=== PATIENT | female | born 1975 | race Caucasian/White ===

== ENCOUNTER 2020-05-13 11:10 | Outpatient (CLI) | payer BC, SELFPAY ==
--- NOTE | ~2020-05-13 | XR_ITS ---
XR chest 2V DATE: 05/13/2020 11:34 INDICATION: Cough. Back pain. TECHNIQUE: PA and lateral views COMPARISON: None FINDINGS: Normal heart size. No hilar or mediastinal enlargement. No pulmonary infiltrate or consolid ation, pleural effusion or pulmonary vascular congestion or pneumothorax. IMPRESSION: No active cardiopulmonary disease Reviewed, dictated and finalized at location B.
== END 2020-05-13 11:11 | disposition home or self-care (01) ==
PROVIDERS: PCP Internal Medicine; Visit Provider Clinical Nurse Specialist
DX: M54.9 Dorsalgia, unspecified (principal); R05 Cough
CPT/HCPCS: 71046

== ENCOUNTER → 2020-12-25 08:00 | Outpatient (CLI) | payer BC, SELFPAY ==
[2020-12-25 19:41] LABS: SARS-CoV-2 RNA PCR Negative
== END ==
PROVIDERS: PCP Internal Medicine; Visit Provider Nurse Practitioner
DX: R68.89 Other general symptoms and signs (principal); Z20.822 Contact with and (suspected) exposure to COVID-19
CPT/HCPCS: C9803; U0003; U0005

== ENCOUNTER → 2021-02-10 00:21 | Outpatient (CLI) | payer BC, SELFPAY ==
[2021-02-11 00:42] LABS: SARS-CoV-2 RNA PCR Negative
== END ==
PROVIDERS: PCP Internal Medicine; Visit Provider Clinical Nurse Specialist
DX: R68.89 Other general symptoms and signs (principal); Z20.822 Contact with and (suspected) exposure to COVID-19
CPT/HCPCS: C9803; U0003; U0005

== ENCOUNTER 2021-02-18 08:44 | Outpatient (CLI) | payer BC, SELFPAY | END 2021-02-18 08:45 | disposition home or self-care (01) | LOC: ANHCOVIDVC 08:44 | PROVIDERS: PCP Internal Medicine | DX: Z23 Encounter for immunization (principal) | CPT/HCPCS: 0001A; 91300 ==

== ENCOUNTER 2021-03-11 08:42 | Outpatient (CLI) | payer BC, SELFPAY | END 2021-03-11 08:43 | PROVIDERS: PCP Internal Medicine | DX: Z23 Encounter for immunization (principal) | CPT/HCPCS: 0002A; 91300 ==

== ENCOUNTER 2023-12-08 08:02 | Outpatient (CLI) | payer BC, SELFPAY ==
[2023-12-08 13:45] LABS: Basophils Percent Auto 0.7 % (0.2-1.2); Eosinophils Percent Auto 0.2 % (0-4.4); Hematocrit 38.7 % (37.0-47.0); Hemoglobin 12.9 g/dL (12.0-15.0); Immature Granulocyte Absolute 0.01 K/mm3 (0.00-0.031); Immature Granulocyte Percent A 0.2 % (0-0.5); Lymphocytes Absolute Auto 2.07 K/mm3 (0.9-3.2); Lymphocytes Percent Auto 34.1 % (18.3-44.2); Mean Corpuscular HGB Conc 33.3 g/dl (32-36); Mean Corpuscular Hemoglobin 30.1 pg (26-34); Mean Corpuscular Volume 90.2 fl (80-100); Mean Platelet Volume 8.9 fl (7.4-10.4); Monocytes Absolute Auto 0.5 K/mm3 (0.1-0.6); Monocytes Percent Auto 8.6 % (2.6-8.5); Neutrophils Absolute Auto 3.4 K/mm3 (1.3-6.7); Neutrophils Percent Auto 56.2 % (45.5-73.1); Platelet Count Result 378 k/mm3 (150-375); Red Blood Count 4.29 M/mm3 (4.2-5.4); Red Cell Distribution Width 12.1 % (11.5-14.5); White Blood Count 6.1 K/mm3 (4.5-10.0)
[2023-12-08 13:56] LABS: Alanine Aminotransferase 15 U/L (6-35); Albumin Level 4.3 g/dL (3.5-5.1); Alkaline Phosphatase 83 U/L (38-126); Anion Gap 10 mmol/L (8-16); Aspartate Amino Transferase 38 U/L (14-36); Bilirubin,Total 0.5 mg/dL (0.2-1.3); Blood Urea Nitrogen 12 mg/dL (7-17); Calcium 9.2 mg/dL (8.4-10.2); Carbon Dioxide 25 mmol/L (22-30); Chloride 103 mmol/L (98-107); Cholesterol 223 mg/dL (0-200); Estimated Glomerular Filt Rate > 60; Glucose 80 mg/dL (65-110); HDL Direct 53 mg/dL; Potassium 4.2 mmol/L (3.4-5.0); Sodium 138 mmol/L (137-145); Triglycerides 160 mg/dL (<150)
[2023-12-08 14:07] LABS: LDL Cholesterol Direct 134 mg/dL
[2023-12-08 14:10] LABS: Vitamin D 25 Hydroxy 42.9 ng/mL
== END 2023-12-08 08:03 | disposition home or self-care (01) ==
LOC: ANHGOSHLAB 08:04
PROVIDERS: PCP Internal Medicine; Visit Provider Nurse Practitioner
DX: E55.9 Vitamin D deficiency, unspecified (principal); Z13.220 Encounter for screening for lipoid disorders; Z13.29 Encounter for screening for other suspected endocrine disorder; Z00.00 Encounter for general adult medical examination without abnormal findings
CPT/HCPCS: 36415; 80053; 80061; 82306; 85025

== ENCOUNTER 2024-11-02 11:34 | Emergency (ER) | payer BC, SELFPAY ==
[2024-11-02 12:12] VITALS: BP 117/75; PULSE 71; RESP 18; TEMP 36.8; O2SAT 100
--- NOTE | 2024-11-02 12:20 | ED.SKABFB ---
HPI - Skin/Abscess/Foreign Bdy General Chief complaint: Skin/Abscess/Foreign Body Stated complaint: hives Time Seen by Provider: 11/02/24 12:20 Source: patient, RN notes reviewed and old records reviewed Mode of arrival: ambulatory Limitations: no limitations History of Present Illness HPI narrative: patient presents with several week history of rash to trunk, arms, buttocks, thighs. She reports that rash is itchy. Denies any change in lotions, soaps, detergents. Denies any recent travel. She has been using topical medications for her symptoms with minimal relief. Over the past week she has been using Zyrtec with minimal relief. No other concerns or complaints today. Related Data Allergies Allergy/AdvReac Type Severity Reaction Status Date / Time No Known Allergies Allergy Mild Verified 11/02/24 12:36 Review of Systems Review of Systems: All systems reviewed & are unremarkable except as noted in HPI and below Constitutional: Constitutional: Reports no additional constitutional complaints ENT: Reports system reviewed and no additional complaints, except as documented Cardiovascular: Cardiovascular: Reports no additional cardiovascular complaints Respiratory: Respiratory: Reports no additional respiratory complaints Gastrointestinal: Gastrointestinal: Reports no additional gastrointestinal complaints Integumentary/Breasts: Skin/Breast: Reports system reviewed and no additional complaints, except as docu, Reports as per HPI, Reports pruritus and Reports rash PMFSH Past Medical History Medical History Iron deficiency anemia Sexually transmissible disease Surgical History Surgical History Hx of abdominoplasty History of tonsillectomy and adenoidectomy H/O: hysterectomy 2014 Laparoscopic supra cx hysterectomy , cystoscopy- uterine leiomyomata Family History Family History Grandparent Hypertension Family history of elevated blood lipids Cerebrovascular accident Family history of malignant neoplasm of cervix Mother Patient's mother is in good health Father Patient's father is in good health Social History Social History Smoking status: Never smoker Alcohol intake: current Alcohol use details: occasional Substance use: never Lack of Transportation: No Lack of Food: Never True Concerned About Future Housing: No Difficulty Paying Gas/Electric Bills: No Difficulty Paying for Meds: No Currently Unemployed: No Education: Bachelor's Degree Difficulty w/ Childcare or Family Care: No Living arrangements: with family Occupation/Education: occupation Gender identity (if verbalized by the patient): Female Sexual Orientation (if Verbalized by the Patient): Straight or Heterosexual Comments At the time of my signature, I reviewed and agree with the nursing past medical, surgical, social, and family history. There is no relevant family history pertinent to the patient complaint. Exam Const: General: cooperative, no acute distress, alert and awake Orientation/consciousness: oriented to person, oriented to place and oriented to time HENMT: Head: normal to inspection Mouth: Yes moist mucous membranes Resp: Effort & Inspection: normal respiratory effort and able to speak in complete sentences Auscultation: clear to auscultation bilaterally, no crackles, no rales, no rhonchi and no wheezes Cardio: Palpation: normal PMI Rate: regular rate Rhythm: regular rhythm Heart sounds: S1 normal heart sound present and S2 normal heart sound present Skin: Rashes: rashes noted maculopapular rash multiple locations Neuro: General: oriented to person, oriented to place and oriented to time Cranial nerves: Yes CN's II-XII intact bilaterally Psych: Appearance: grossly normal Thought process: Normal thought process present Insight: Good insight present (Psych) Judgement: Good judgement present (Psych) Course Course Level of Care: Express Care Visit Vital Signs Vital signs: Vital Signs Temperature 98.2 F 11/02/24 12:12 Pulse Rate 71 11/02/24 12:12 Respiratory Rate 18 11/02/24 12:12 Blood Pressure 117/75 11/02/24 12:12 Pulse Oximetry 100 11/02/24 12:12 Oxygen Delivery Room Air 11/02/24 12:12 Temperature 98.2 F 11/02/24 12:12 Pulse Rate 71 11/02/24 12:12 Respiratory Rate 18 11/02/24 12:12 Blood Pressure 117/75 11/02/24 12:12 Pulse Oximetry 100 11/02/24 12:12 Oxygen Delivery Room Air 11/02/24 12:12 Reviewed MDM - Skin/Abscess/Foreign Bdy MDM Narrative Medical decision making narrative: Maculopapular rash consistent with contact dermatitis noted 2 large areas of the body. Start prednisone taper. Patient encouraged to follow with primary care provider. Discharge instructions reviewed with patient, as well as provided in writing per nursing staff. The instructions also include specific and strict return/GO TO THE ER as well as f/u information. All questions have been answered, and the patient deny any further questions with discharge and discharge plan. Some parts of this dictation were generated by voice recognition software and may contain typographical and/or grammatical inaccuracies. Differential Diagnosis Differential diagnosis: Likely viral exanthem, dermatophytosis, allergic reaction to drug and contact dermatitis Medical Records Attestation: I reviewed the patient's medical records. Discharge Plan Discharge Clinical Impression: Dermatitis Patient Disposition: Home, Self-Care Condition: Stable Instructions: Antibiotic Form, Dermatitis (ED) Additional Instructions: take medications as prescribed. Follow with primary care provider. Emergency department for new or worse symptoms Patient Language: Bulgarian Prescriptions: New prednisone 10 mg tablet 10 mg PO DIRECTED Qty: 45 0RF Rx Instructions: 50 mg by mouth daily for 3 days, 40 mg by mouth daily for 3 days , 30 mg by mouth daily for 3 days, 20 mg by mouth daily for 3 days, 10 mg by mouth daily for 3 days, then stop. No Action estradiol 1 mg tablet 1.5 mg PO DAILY 90 Days Qty: 135 2RF Follow-up/Referrals: Evaristo Gutiérrez DO [Primary Care Provider] - Time of Disposition: 12:43
== END 2024-11-02 12:46 | disposition home or self-care (01) ==
PROVIDERS: Emergency Provider Nurse Practitioner Family; PCP Internal Medicine
DX: L30.9 Dermatitis, unspecified (principal)
CPT/HCPCS: 99213; G0463

== ENCOUNTER 2025-02-15 08:30 | Outpatient (CLI) | payer BC, SELFPAY ==
--- NOTE | ~2025-02-15 | MM_ITS ---
EXAMINATION: MM screening [facility] BI w [place] HISTORY: Screening TECHNIQUE: Craniocaudal and mediolateral oblique 3-D tomosynthesis images were obtained and synthetic 2-D images were generated. CAD analysis was submitted and interpreted. COMPARISON: 02/09/2017 BREAST PARENCHYMAL COMPOSITION: Dense: The breasts are extremely dense, which lowers the sensitivity of mammography. FINDINGS: There are benign-appearing bilateral breast calcifications. There is no evidence of suspici ous mass, calcification, or architectural distortion to suggest malignancy in either breast. There no s been no suspicious interval change. IMPRESSION: 1. No mammographic evidence of malignancy. 2. Recommend routine screening mammography in one year. BI-RADS Category 1: Negative Reviewed, dictated and finalized at location A.
--- OUTSIDE RECORDS SUMMARY | 2025-02-15 08:36 | XMS_ITS ---
Author Organization [facility] Address [address] [place] [address] Care Team Providers Care Obstetrician Gynecologist Name Role Phone Evaristo Gutiérrez Primary Care Provider Omaira Mane Unavailable [phone] Allergies No Known Allergies Results Component Value Reference Range Notes -Tryptase ([id number]) Reviewed date:12/11/2024 08:40:30 AM Interpretation:Normal Performing Lab:[facility] [id number], Phone - [phone], Director - Nicola Notes/Report: Tryptase 12.0 2.2-13.2 ug/L -TSH Rfx on Abnormal to Free T4 Reviewed date:12/11/2024 08:41:44 AM Interpretation:Normal Performing Lab:[facility] [address] [id number], Phone - [phone], Director - Rose Notes/Report: TSH 1.310 0.450-4.500 uIU/mL -CMP (14) Reviewed date:12/11/2024 08:39:04 AM Interpretation:Normal Performing Lab:[facility] [address] [id number], Phone - [phone], Director - Rose Notes/Report: Glucose 93 70-99 mg/dL BUN 16 6-24 mg/dL Creatinine 0.67 0.57-1.00 mg/dL eGFR 107 >59 mL/min/1.73 BUN/Creatinine Ratio 24 9-23 Sodium 138 134-144 mmol/L Potassium 4.1 3.5-5.2 mmol/L Chloride 101 96-106 mmol/L Carbon Dioxide, Total 23 20-29 mmol/L Calcium 9.4 8.7-10.2 mg/dL Protein, Total 7.3 6.0-8.5 g/dL Albumin 4.7 3.9-4.9 g/dL Globulin, Total 2.6 1.5-4.5 g/dL Bilirubin, Total <0.2 0.0-1.2 mg/dL Alkaline Phosphatase 85 44-121 IU/L AST (SGOT) 16 0-40 IU/L ALT (SGPT) 13 0-32 IU/L -Sedimentation Rate-Westergr en Reviewed date:12/11/2024 08:39:14 AM Interpretation:Normal Performing Lab:[facility] [id number], Phone - [phone], Director - [facility] Notes/Report: Sedimentation Rate-Westergren 4 0-32 mm/hr -CBC With Differential/Plate let Reviewed date:12/11/2024 08:39:29 AM Interpretation:Normal Performing Lab:[facility] [address] [id number], Phone - [phone], Director - [facility] Notes/Report: WBC 6.8 3.4-10.8 x10E3/uL RBC 4.41 3.77-5.28 x10E6/uL Hemoglobin 13.2 11.1-15.9 g/dL Hematocrit 40.9 34.0-46.6 % MCV 93 79-97 fL MCH 29.9 26.6-33.0 pg MCHC 32.3 31.5-35.7 g/dL RDW 12.1 11.7-15.4 % Platelets 433 150-450 x10E3/uL Neutrophils 54 Not Estab. % Lymphs 38 Not Estab. % Monocytes 7 Not Estab. % Eos 0 Not Estab. % Basos 1 Not Estab. % Neutrophils (Absolute) 3.7 1.4-7.0 x10E3/uL Lymphs (Absolute) 2.6 0.7-3.1 x10E3/uL Monocytes(Absolute) 0.5 0.1-0.9 x10E3/uL Eos (Absolute) 0.0 0.0-0.4 x10E3/uL Baso (Absolute) 0.1 0.0-0.2 x10E3/uL Immature Granulocytes 0 Not Estab. % Immature Grans (Abs) 0.0 0.0-0.1 x10E3/uL REASON FOR VISIT Chronic Urticaria Medications Medication SIG (Take, Route, Frequency, Duration) Notes Start Date End Date Status Famotidine 20 MG 1 tablet Orally Twic e a day for 30 days 12/07/2024 Active Montelukast Sodium 10 MG 1 tablet Orally Once a day for 30 days 12/07/2024 Active methylPREDNISolone 4 MG as directed Oral ly daily for 6 days 12/07/2024 Active Cetirizine HCl 10 MG 1 tablet Orally Twi ce a day for 30 days 12/07/2024 Active Estradiol 1 MG TAKE 1.5 TABLETS BY MOUTH EVERY DAY Oral for 90 Days Activ e Social History Tobacco Use: Social History Observation Description Date Details (start date - stop date) Never Smoker NA - NA Tobacco Control (Standard) Question Answer Notes Tobacco use: Nonsmoker Section Notes: dogs and rabbits works in [employer] Problems Problem Type SNOMED Code ICD Code Onset Dates Problem Status W/U Status Risk Notes Problem Chronic rhinitis (01121610) Chronic rhinitis (J31.0) Active confirmed Problem Food allergy (395494078) Allergy to other foods (Z91.018) Active confirmed Vital Signs Blood pressure systolic 125 mm Hg 12/06/19 25 Blood pressure diastolic 79 mm Hg 025 Height 65 in 12/06/2024 Weight 158.0 lbs 12/06/2024 BMI 26.29 kg/m2 12/06/2024 Oximetry 99 % 12/06/2024 Encounters Encounter Location Date Provider Diagnosis [facility] [address] [place] [address] 12/06/2024 Omaira Pool Chronic rhinitis J31.0 ; Idiopathic urticaria L50.1 and Allergy to other foods Z91.018 Assessments Encounter Date Diagnosis (ICD Code) Assessment Notes Treatment Notes Treatment Clinical Notes Section Notes 12/06/2024 Chronic rhinitis (ICD-10 - J31.0) Given the history and symptoms, skin testing was performed to common aeroallergens to determine atopic status. Skin testing today was negative for aeroallergens. Allegens do not appear to be playing a role in hives. 12/06/2024 Idiopathic urticaria (ICD-10 - L50.1) Considerations for hives include autoimmune, viral, stress, or idiopathic. Plan to order labwork for further evaluation. Start treatment with Zyrtec 10 mg BID, Famotidine 40 mg BID, and Singulair. Follow-up in 1 month. Consider Xolair if hives continue to be uncontrolled. 12/06/2024 Allergy to other foods (ICD-10 - Z91.018) Reactions with alcohol appears to be secondary to sulfites. Recommend keeping a food diary. 12/06/2024 Other Plan Of Treatment Medication Medication Name Sig Start Date Stop Date Notes Famotidine 20 MG 1 tablet Orally Twic e a day for 30 days 12/07/2024 Montelukast Sodium 10 MG 1 tablet Orally Once a day for 30 days 12/07/2024 methylPREDNISolone 4 MG as directed Oral ly daily for 6 days 12/07/2024 Cetirizine HCl 10 MG 1 tablet Orally Twi ce a day for 30 days 12/07/2024 Treatment Notes Assessment Notes Chronic rhinitis Given the history an d symptoms, skin testing was performed to common aeroallergens to determine atopic status. Skin testing today was negative for aeroallergens. Allegens do not appear to be playing a role in hives. Idiopathic urticaria Considerations for hives include autoimmune, viral, stress, or idiopathic. Plan to order labwork for further evaluation. Start treatment with Zyrtec 10 mg BID, Famotidine 40 mg BID, and Singulair. Follow-up in 1 month. Consider Xolair if hives continue to be uncontrolled. Allergy to other foods Reactions with al cohol appears to be secondary to sulfites. Recommend keeping a food diary. Next Appt Details Follow Up: 4 Weeks, Reason: Evaluation and Management Procedure Notes * Category Sub-Category Detail Notes Skin Testing Number of Skin Tests Performed (including controls): Aeroallergen: Yes Epicutaneous: 72 Epicutaneous (New) skin testing was per formed to common aeroallergens, revealing positive reactions to only histamine controls, negative to all aeroallergens tested Progress Notes * Mirlande WONGDOB:1975 (49 yo F)Acc No.[id number]:12/06/2024 Progress Notes Patient: Mirlande MCKEON Provider: Joe Pool MD :1975 A ge:49 Y S ex:Female Date:12/06/2024 [id number] Pcp:Evaristo Gutiérrez Subjective: * Chief Complaints: * C hronic Urticaria * HPI: * Introduction: I had the pleasure of seeing Marissa Wong, a 49 year old with recent hives presenting for evaluation of chronic urticaria. She is alone for today's visit. Hives started June 2024 and flared in October. She reports hives on her upper legs, neck, chest and abdomen. She was treated with prednisone by urgent care about 4 weeks ago with improvement. Hives recurred after stopping. She has used topical Benadryl and Zyrtec without significant improvement. Hives are pruritic. No change with exercise or hot showers. No history of angioedema. She does not take NSAIDS. Beer, wine and pradeep caused pruritus. She works in [employer]. No recent illness. She has never undergone allergy skin testing or received allergy immunotherapy. She denies a history of physician-diagnosed allergic rhinitis, recurrent sinusitis or otitis media, recurrent pneumonia, asthma/RAD, eczema, food allergies, m edication allergies, contact dermatitis, latex allergy, eosinophilic esophagitis or stinging insect hypersensitivity. * ROS: A LLERGY: Positive p er the HPI and history, otherwise unremarkable.? S PECIAL SENSES: Positve for n one. C ONSTITUTIONAL: Positive for n one. E NT: Positive p er the HPI and history, otherwise unremarkable.? R ESPIRATORY: Positive p er the HPI and history, otherwise unremakable.? O PHTHALMOLOGY: Positive for p er the HPI and history, otherwise unremarkable. E NDOCRINOLOGY: Positive for n one. C ARDIOLOGY: Positive for n one. G ASTROENTEROLOGY: Positive for n one. U ROLOGY: Positive for n one. D ERMATOLOGY: Positive for p er the HPI and history, otherwise unremakable. N EUROLOGY: Positive for n one. H EMATOLOGY/LYMPH: Positive for n one. M USCULOSKELETAL: Positive for n one. P SYCHOLOGY: Positive for n one. A ll other review of systems per the HPI and history, otherwise unremarkable. * Medical History: * Surgical History: h ysterectomy 2010Tonsillectomy 1999 * Hospitalization/Major Diagno stic Procedure: D enies Past Hospitalization * Family History: F ather: alive, lung cancer, diagnosed with Cancer. M other: alive, lung cancer, diagnosed with Cancer. * Social History: T obacco Control (Standard) Tobacco use: N onsmoker d ogs and rabbits works in [employer]. * Medications: T akingEstradiol 1 MG Tablet TAKE 1.5 TABLETS BY MOUTH EVERY DAY Oral Medication List reviewed and reconciled with the patientTaking Estradiol 1 MG Tablet TAKE 1.5 TABLETS BY MOUTH EVERY DAY Oral Medication List reviewed and reconciled with the patient * Allergies: N .K.D.A.no[Allergies Verified] Objective: * Vitals: B P:125/79mm Hg, HR:95/min, Pulse Oximetry:99%, Ht: 65 in, Wt: 158.0 lbs, BMI:26.29Index. * Examination: G eneral examination: General appearance: p leasant, well-developed, well-nourished. HEENT: c onjunctiva are clear bilaterally, no tenderness to palpation of the sinuses, TM's without evidence of acute infection, turbinates 2+ swollen and pale inferiorly bilaterally, clear rhinorrhea is present, no polyps noted, no septal perforation, posterior oropharynx is clear, no exudates, no tongue swelling, and uvula is midline. Oral cavity: n ormal, no lesions. Neck, thyroid : s upple, non-tender, no anterior cervical lymphadenopathy. Breasts : n ot performed. Heart: R RR, S1-S2, no murmurs, no rubs, no gallops. Lungs: c lear to auscultation and percussion in all lung mabry, no wheezes or crackles. Neurologic exam: u nremarkable. Skin: e rythematous, round areas scattered on chest . ? Peripheral pulses: n ormal (2+) bilaterally. Back: n ormal. Extremities: n ormal ROM, no clubbing, no cyanosis, no edema. Genitalia: n ot performed. Assessment: * Assessment: 1. I diopathic urticaria - L50.1 (Primary) 2 . C hronic rhinitis - J31.0? 3. A llergy to other foods - Z91.018 Plan: * Treatment: 2. C hronic rhinitis Notes: Given the history and symptoms, skin testing was performed to common aeroallergens to determine atopic status. Skin testing today was negative for aeroallergens. Allegens do not appear to be playing a role in hives. 3. A llergy to other foods Notes: Reactions with alcohol appears to be secondary to sulfites. Recommend keeping a food diary. ? * Procedures: S kin Testing: Number of Skin Tests Performed (including controls): A eroallergen Y es E picutaneous 7 2 Epicutaneous (New) s kin testing was performed to common aeroallergens, revealing positive reactions to only histamine controls, negative to all aeroallergens tested. * Procedure Codes: 9 5004 PRICK TESTS, Units: 72.00 25355 PT-FOCUSED HLTH RISK [id number] DOC MEDS VERIFIED W/PT OR RE * Preventive Medicine: Counseling: M edication instruction: W atch for side effects of prescribed medications, Nasal steroid/antihistamine instruction: avoid septum. E ducation: G ENERAL EDUCATION: Our staff spent an additional 30 minutes in direct contact with the patient educating them on their current diagnoses and proper treatment and prevention of symptoms and the proper use of medications. P atient education material sent to portal? Y es * Follow Up: 4 Weeks (Reason: Evaluation and Management) * Billing Information: * Visit Code: 22756 Office Visit, New Pt., Level 3. Modifiers: 25 * Procedure Codes: 15391 PRICK TESTS. Units: 72.00. 09679 PT-FOCUSED HLTH RISK ASSMT. G8427 DOC MEDS VERIFIED W/PT OR RE. Images * 12/06/2024 14:24:32 * KER OPERATOR Sign off status: Completed true * Provider: Joe Pool MD Date: 0 12/06/2024 Generated for Jesus loyola/Kevin/Bhupinderitting on: 0 02/15/2025 08:36 AM CDT History and Physical Notes * HPI (History of Present Illness) Category Sub-Category Detail Notes Category Not es *Introduction I had the pleasure o f seeing Mirlande Wong, a 49 year old with recent hives presenting for evaluation of chronic urticaria. She is alone for today's visit. Hives started June 2024 and flared in October. She reports hives on her upper legs, neck, chest and abdomen. She was treated with prednisone by urgent care about 4 weeks ago with improvement. Hives recurred after stopping. She has used topical Benadryl and Zyrtec without significant improvement. Hives are pruritic. No change with exercise or hot showers. No history of angioedema. She does not take NSAIDS. Beer, wine and pradeep caused pruritus. She works in [employer]. No recent illness. She has never undergone allergy skin testing or received allergy immunotherapy. She denies a history of physician-diagnosed allergic rhinitis, recurrent sinusitis or otitis media, recurrent pneumonia, asthma/RAD, eczema, food allergies, medication allergies, contact dermatitis, latex allergy, eosinophilic esophagitis or stinging insect hypersensitivity Examination Category Sub-Category Detail Notes Category Not es General examination HEENT: conjunctiva are clear bilaterally, no tenderness to palpation of the sinuses, TM's without evidence of acute infection, turbinates 2+ swollen and pale inferiorly bilaterally, clear rhinorrhea is present, no polyps noted, no septal perforation, posterior oropharynx is clear, no exudates, no tongue swelling, and uvula is midline Neck, thyroid : supple, non-tender, no anterior cervical lymphadenopathy Heart: RRR, S1-S2, no murmu rs, no rubs, no gallops Lungs: clear to auscultatio n and percussion in all lung mabry, no wheezes or crackles Abdomen: Extremities: normal ROM, no clubb ing, no cyanosis, no edema General appearance: pleasant, well-devel oped, well-nourished Skin: erythematous, round areas scattered on chest Neurologic exam: unremarkable Oral cavity: normal, no lesions Breasts : not performed Peripheral pulses: normal (2+) bilatera lly Back: normal Genitalia: not performed
--- OUTSIDE RECORDS SUMMARY | 2025-02-15 08:37 | XMS_ITS | Clinical Summary ---
Author Organization [facility] Address [address] [address] Phone Care Team Providers Care Child Adolescent Psychiatrist Name Role Phone KristinagenesisEvaristo aaron Primary Care Provider Allergies No known active allergies Medications docusate sodium (COLACE) 100 mg capsule Take 100 mg by mouth 2 times daily. Active multivitamin (DAILY-OSITO) tablet Take 1 Tab by mouth daily. Active VITAMIN B COMPLEX NO.12-NIACIN ORAL Take by mouth. Active Iron Fum & [id number] [facility] 151-60-10-1 uv-pg-sst-mg Tablet Take by mouth. 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 Not on file Not on file Not on file Last Filed Vital Signs Vital Sign Reading Time Taken Comments Blood Pressure 122/70 06/25/2015 10:03 AM CDT Pulse 80 06/04/2015 7:25 AM CDT Temperature 36.4 C (97.6 F) 06/04/2015 7:25 AM CDT Respiratory Rate 16 06/04/2015 7:25 AM CDT Oxygen Saturation 98% 06/04/2015 7:25 AM CDT Inhaled Oxygen Concentration - - Weight 64 kg (141 lb) 06/25/2015 10:03 AM CDT Height 165.1 cm (5' 5 ) 06/25/2015 10:03 AM CDT Body Mass Index 23.46 06/25/2015 10:03 AM CDT Plan of Treatment Health Maintenance Due Date Last Done Comments DTAP/TDAP/TD VACCINES (1 - Tdap) 1994 HEPATITIS B VACCINES (1 of 3 - 19+ 3-dose series) 1994 HPV/Cotest (21-29) 1996 PAP SMEAR 1996 CERVICAL CANCER SCREENING 2005 HPV/Cotest (30-65) 2005 PAP SMEAR 2005 BREAST CANCER SCREENING 2015 COLORECTAL SCREENING 2020 Colorectal Cancer Screening 2020 FIT-DNA Q 3 years 2020 FIT/FOBT Q 1 year 2020 Flex Sig/CT Colonography Q 5 years 2020 INFLUENZA VACCINE (#1) 2024 PNEUMOCOCCAL VACCINE 0-49 YEARS Aged Out No longer eligible based on patient's age to complete this topic Advance Directives For more information, please contact: [phone] * Full Code (Latest Code Status on File) Date Activated Date Inactivated Comments 06/03/2015 10:57 AM 06/04/2015 1:40 PM * Full Code Date Activated Date Inactivated Comments 06/03/2015 5:41 AM 06/03/2015 10:57 AM Care Teams Child Adolescent Psychiatrist Relationship Specialty Start Date End Date Evaristo Gutiérrez DO PCP - General 10/24/15
--- OUTSIDE RECORDS SUMMARY | 2025-02-15 08:37 | XMS_ITS | Clinical Summary ---
Author Organization [facility] Address [address] [place] [address] Care Team Providers Care Cutting Machine Tender Name Role Phone Evaristo Gutiérrez DO Primary Care Provider Source Comments [facility],non-owned Affiliates and Associated Physician Practices is amultiple site organization consisting of ambulatory clinics and hospital sitesin [place], [place], [place] and [place]. This disclosure is being madepursuant to the Care Everywhere program and may not contain all information available regarding this patient. Last updated 18.[facility] Allergies No known active allergies Medications * Be aware that medications may not be up to date on this document. Alwaysverify current medications with the patient. Medication Sig Dispensed Refills Start Date End Date Status VITAMINS PO Take by mouth. Active Acetaminophen-Pamabrom (WOMENS TYLENOL PO) Take by mouth. A ctive Active Problems Problem Noted Date Diagnosed Date Screening for condition 12/02/2012 Overview (08/08/2015): 1st look done on 11.25.12 Result: 1:880 screening risk for Down Syndrome 1: 10,000 screening risk for Trisomy 18 2nd blood draw ideal dates: 01/09/13- 01/23/13 Letter sent on 12.02.12/ 12.16.12 Final results: for Trisomy 18 and for ONTD Fibroid- Rt lateral 4 x 4 x 4 11/22/2012 AMA (advanced maternal age) multigravida 35+ 09/2013 Social History Tobacco Use Types Packs/Day Years Used Date Smoking Tobacco: Never Smokeless Tobacco: Never Alcohol Use Standard Drinks/Week Comments No 0 (1 standard drink = 0.6 oz pur e alcohol) Sex and Gender Information Value Date Recorded Sex Assigned at Not on file Gender Identity Not on file Sexual Orientation Not on file Last Filed Vital Signs Vital Sign Reading Time Taken Comments Blood Pressure 107/75 02/20/2015 9:20 AM CDT Pulse 98 02/20/2015 9:20 AM CDT Temperature 36.6 C (97.8 F) 01/08/2015 8:40 AM INSULATION INSTALLER Respiratory Rate 16 02/20/2015 9:20 AM CDT Oxygen Saturation 95% 01/08/2015 10:20 AM INSULATION INSTALLER Inhaled Oxygen Concentration - - Weight 65.8 kg (145 lb) 02/20/2015 9:20 AM CDT Height 165.1 cm (5' 5 ) 02/20/2015 9:20 AM CDT Body Mass Index 24.13 02/20/2015 9:20 AM CDT Plan of Treatment Health Maintenance Due Date Last Done Comments COLOGUARD (AGES 45-75) - COL ON CA SCREENING 1975 COLON MONITORING 1975 COLONOSCOPY - COLON CA SCREENING 1975 CT COLONOGRAPHY - COLON CA SCREENING 1975 Colorectal Cancer Screening 1975 FIT - COLON CA SCREENING 1975 FLEX SIG - COLON CA SCREENING 1975 LIPID TESTING 1975 MAMMOGRAM 1975 PAP SMEAR 1975 HIV SCREENING 1990 HEPATITIS C SCREENING 04/11/1993 DTAP/TDAP/TD VACCINES (1 - Tdap) 1994 HEPATITIS B VACCINE (1 of 3 - 19+ 3-dose series) 1994 COVID-19 VACCINE ( - 2023-2 5 season) 2024 DEPRESSION SCREENING 11/08/2024 ZOSTER VACCINE (1 of 2) 2025 INFLUENZA VACCINE (Season Ended) 2025 HIB VACCINE Aged Out No longer eligi ble based on patient's age to complete this topic HPV VACCINE Aged Out No longer eligi ble based on patient's age to complete this topic MENINGOCOCCAL (Group B) VACC INE SHARED DECISION-MAKING Aged Out No longer eligibl e based on patient's age to complete this topic MENINGOCOCCAL GROUPS A/C/Y/W VACCINE Aged Out No longer eligible b ased on patient's age to complete this topic PNEUMOCOCCAL VACCINE Aged Out No long er eligible based on patient's age to complete this topic Care Teams Cutting Machine Tender Relationship Specialty Start Date End Date Evaristo Gutiérrez DO PCP - General 10/10/19
--- OUTSIDE RECORDS SUMMARY | 2025-02-15 08:37 | XMS_ITS | Patient Health Record ---
Author Organization [facility] Address [address] [place] [id number] Care Team Providers Care Business Applications Developer Name Role Phone Evaristo Gutiérrez Primary Care Provider Omaira Mane Unavailable [phone] Allergies No Known Allergies Results Component Value Reference Range Notes -CBC With Differential/Plate let Reviewed date:12/11/2024 08:39:29 AM Interpretation:Normal Performing Lab:[facility], [address] [place] [id number], Phone - [phone], Director - Rose Notes/Report: WBC 6.8 3.4-10.8 x10E3/uL RBC 4.41 [...] % Immature Grans (Abs) 0.0 0.0-0.1 x10E3/uL -Sedimentation Rate-Westergr en Reviewed date:12/11/2024 08:39:14 AM Interpretation:Normal Performing Lab:[facility] [id number], Phone - [phone], [facility]Report: Sedimentation Rate-Westergren 4 0-32 mm/hr -CMP (14) Reviewed date:12/11/2024 08:39:04 AM Interpretation:Normal Performing Lab:[facility] [id number], Phone - [phone], [facility] Notes/Report: Glucose 93 70-99 mg/dL BUN 16 [...] 0-40 IU/L ALT (SGPT) 13 0-32 IU/L -TSH Rfx on Abnormal to Free T4 Reviewed date:12/11/2024 08:41:44 AM Interpretation:Normal Performing Lab:[address] [id number], Phone - [phone], Director - [facility] Notes/Report: TSH 1.310 0.450-4.500 uIU/mL -Tryptase ([id number]) Reviewed date:12/11/2024 08:40:30 AM Interpretation:Normal Performing Lab:[address] [id number], Phone - [phone], Director - Nicola Notes/Report: Tryptase 12.0 2.2-13.2 ug/L Reason For Referral No Information Medications Medication SIG (Take, Route, Frequency, Duration) [...] Section Notes: dogs and rabbits works in [employer] Problems Problem Type SNOMED Code ICD Code Onset Dates Problem Status W/U Status Risk Notes Problem Chronic rhinitis (90069264) Chronic rhinitis (J31.0) Active confirmed Problem Food allergy (326460968) Allergy to other foods (Z91.018) Active confirmed Vital Signs Oximetry 99 % 12/06/2024 Blood pressure diastolic 79 mm Hg 12/06/2024 Height 65 in 12/06/2024 Blood pressure systolic 125 mm Hg 12/06/2024 Weight 158.0 lbs 12/06/2024 BMI 26.29 kg/m2 12/06/2024 Encounters Encounter Location Date Provider Diagnosis [facility] [address] [place] [address] 12/06/2024 Omaira Pool Chronic rhinitis J31.0 ; Idiopathic urticaria L50.1 and Allergy to other foods Z91.[address] [facility] [address] [place] [address] 12/07/2024 Omaira Pool [address] [address] 12/11/2024 Omaira Pool Assessments Encounter Date Diagnosis (ICD Code) Assessment [...] food diary. 12/06/2024 Other Plan Of Treatment No Information Insurance Providers Payer Name Payer Address Payer Phone Subscriber Number Group Number Insured Name Patient Relationship to Insured Coverage Start Date Coverage End Date JEANNA CARVAJAL (Ken ) [address] [place] [address] [id number] [facility] Mirlande Self - patient is the insured 2024 Medical (General) History Medical History History ICD Code Idiopathic urticaria L50.1 Surgical History Surgery Date(Month/Year) hysterectomy 2010 Tonsillectomy 1999
--- OUTSIDE RECORDS SUMMARY | 2025-02-15 08:37 | XMS_ITS ---
Author Organization [facility] Address [address] [place] [address] Care Team Providers Care Public Health Analyst Name Role Phone Evaristo Gutiérrez Primary Care Provider Unavailab Omaira Zhu Unavailable [phone] REASON FOR VISIT Refills Encounters Encounter Location Date Provider Diagnosis [facility] [address] [place] [address] 12/07/2024 Omaira Pool Plan Of Treatment No Information Progress Notes * Mirlande WONGDOB:1975 (49 yo F)Acc No.[id number]:12/07/2024 Patient: Mirlande MCKEON :1975 A ge:49 Y S ex:Female Address:[address] [place] [address], [phone] * true * Date: Generated for Tarahi nir/Faeniog/eTransmitting on: 0 02/15/2025 08:36 AM CDT
--- OUTSIDE RECORDS SUMMARY | 2025-02-15 08:38 | XMS_ITS | Continuity of Care Document ---
Author Name [facility] Organization [facility] Care Team Providers Care Hospitality Services Manager Name Role Phone [facility] Unavailable Unavailable Immunizations Combined list of available immunizations from the Department of Defense and Veterans Affairs facilities. Immunization Series Date Given Administered By Site Reaction Lot Number CVX Code Drug Rubber Goods Tester Water Status Comments Source influenza virus vaccine, whole virus 2002 [id number] sanofi pasteur complet ed influenza virus vaccine, whole virus 01/11/03 Given Ambulat ory Pharmac y hepatitis B adult vaccine 2000 [id number] [employer] complet ed hepatitis B adult vaccine 12/16/00 Given Ambulat ory Pharmac y influenza virus vaccine, whole virus 2000 [id number] Assurely complet ed influenza virus vaccine, whole virus 11/11/00 Given Ambulat ory Pharmac y hepatitis B adult vaccine 1999 [id number] 43 sanofi pasteur complet ed hepatitis B adult vaccine 06/28/00 Given Ambulat ory Pharmac y hepatitis B adult vaccine 1999 [id number] 43 sanofi pasteur complet ed hepatitis B adult vaccine 05/27/00 Given Ambulat ory Pharmac y influenza virus vaccine, whole virus [id number] [facility] complet ed influenza virus vaccine, whole virus 02/12/99 Given Ambulat ory Pharmac y influenza virus vaccine, whole virus [id number] PFIZER complet ed influenza virus vaccine, whole virus 09/21/97 Given Ambulat ory Pharmac y hepatitis A adult vaccine [id number] PFIZER complet ed hepatitis A adult vaccine 09/22/96 Given Ambulat ory Pharmac y meningococcal polysaccharid e (MPSV4) 1995 32 complet ed meningoco ccal polysacch aride (MPSV4) 09/22/96 Given Ambulat ory Pharmac y hepatitis A adult vaccine 1994 52 complet ed hepatitis A adult vaccine 08/04/95 Given Ambulat ory Pharmac y yellow fever vaccine [id number] PFIZER complet ed yellow fever vaccine 07/17/94 Given Ambulat ory Pharmac y typhoid vaccine, live, oral [id number] PFIZER complet ed typhoid vaccine, live, oral 07/17/94 Given Ambulat ory Pharmac y tetanus-dipht h toxoids (Td) adult/adol 1992 09 complet ed tetanus-d iphth toxoids (Td) adult/ado l 10/24/93 Given Ambulat ory Pharmac y measles/mumps /rubella virus vaccine 1992 03 complet ed measles/m umps/rube lla virus vaccine 10/24/93 Given Ambulat ory Pharmac y poliovirus vaccine, live, oral 1992 complet ed polioviru s vaccine, live, oral 10/24/93 Given Ambulat ory Pharmac y meningococcal polysaccharid e (MPSV4) [id number] PFIZER complet ed meningoco ccal polysacch aride (MPSV4) 10/20/93 Given Ambulat ory Pharmac y Results Combined list of recent chemistry, hematology and other laboratory results from [facility] Defense and [facility], ranging from 15 months to all on record, depending upon the facility. Order Name Results Value Reference Range Date Interpretation Specimen Comments Source Infectiou s Disease HIV-1/O/2 Non-Reac tive 4 (12/11/23 12:34 PM) 12/11 N Interpretiv e Data: INTERPRETAT ION: This method is a screening procedure for the detection of HIV p24 Antigen and Antibodies to HIV-1, including Group O, and/or HIV-2. NON-REACTIV E: HIV-1 antigen and HIV-1 / HIV-2 antibodies were not detected. No laboratory evidence of HIV infection. A negative test result does not exclude the possibility of exposure to or infection with HIV. HIV antibodies and/or p24 antigen may be undetectabl e in some stages of the infection and in some clinical conditions. If acute HIV infection is suspected, consider submitting another specimen to a reference laboratory for HIV-1 RNA. SCREEN REACTIVE - CONFIRMATIO N TO FOLLOW: Possible presence of HIV-1antibo dies, HIV-2 antibodies and/or HIV-1 p24 antigen. Specimen will reflex to the confirmatio n testing that fulfills the Center for Disease Control and Prevention' s HIV diagnostic algorithm. Refer to [facility] Lab Guide for additional information : [email or web address]/ [email or web address] x Testing performed by [facility]. [facility]U [facility] Miscellan eous Sendouts Repository Sample Received (12/11/23 12:34 PM) 12/11 N [facility] Hematolog y Sickle Cell Screen Negative 2 (12/11/23 12:34 PM) 12/11 N Interpretiv e Data: Expected Normal Range is Negative. This test was developed and its performance characteris tics evaluated by [facility]. It has not been cleared or approved by the U.S. Food Drug Administrat ion (FDA).&#160 ; FDA does not require this test to go through premarket FDA review. The test is used for clinical purposes and should not be regarded as investigati onal or for research. This laboratory is certified under the Clinical Laboratory Improvement Amendments of 1988 ( CLIA ) as qualified to perform high complexity clinical laboratory testing. 0109A-A [facility] H Hematolog y G6PD 13.2 unit/gHb 12/11 N Interpretiv e Data: All persons below our lower limit of 7 are considered Deficient .G6PD reported value is a calculation based on G6PD and hemoglobin values. Values greater than the upper limit of our reference range are considered Normal in accordance with guidance from the [place] Textbook on Clinical Chemistry, which states that values greater than the upper limit of the reference range are encountered in any condition associated with younger than normal RBC's (as in hemolytic anemias not due to G6PD deficiency) , but are of no clinical significanc e. Certain drugs and other substances are known to influence circulating levels of G6PD. Reticulocyt es havehigher G6PD levels than mature erythrocyte s, so samples should not be collected after a severe hemolytic crisis. Copper completely inhibits G6PD at a concentrati on of 100 umol/L, and sulfate ions (0.005 mol/L) decrease observed levels of G6PD activity. This test was developed and its performance characteris tics evaluated by [facility]. It has not been cleared or approved by the U.S. Food Drug Administrat ion (FDA). FDA does not require this test to go through premarket FDA review.The test isused for clinical purposes and should not be regarded as investigati onal or for research. This laboratory is certified under the Clinical Laboratory Improvement Amendments of 1988 ( CLIA ) as qualified to perform high complexity clinical laboratory testing. 0109A-A [facility] Blood Bank ABO/Rh Type O POS 12/115A-[address] [place] [address] Blood Bank ABORh Retype O POS 12/11- [address] [place] [address] Immunolog y/Serolog y VZV IgG Scrn Positive 1 (12/11/23 12:34 PM) 12/11 N Interpretiv e Data: NEGATIVE: Absence of detectable VZV IgG antibodies. A negative result indicates no detectable VZV antibody, but does not rule out acute infection. It should be noted that the test usually scores negative in infected patients during the incubation period and the early stages of infection. If exposure to varicella-z zoran virus is suspected, despite a negative finding, a second sample should be collected and tested no less than one or two weeks later. EQUIVOCAL: Please obtain additional specimen for re-testing. POSITIVE: Presence of detectable VZV IgG antibodies. A positive result generally indicates exposure to the pathogen or administrat ion of specific immunoglobu samira, but it is no indication of active infection or stage of disease. The use of icteric or lipemic serum, or serum exhibiting hemolyzed or microbial growth should be avoided. The results from this assay are not by themselves diagnostic and should be considered in association with other clinical data and patient symptoms. Results from immunosuppr essed patients should be interpreted with caution. The performance characteris tics with individuals vaccinated with VZV (BRANT Strain) have not been established . Diagnosis of infectious diseases should not be established on the basis of a single test result, but should be determined in conjunction with clinical findings and other diagnostic procedures as well as in association with medical judgment. Although patient samples are washed away prior to the addition of the mouse monoclonal antibody (conjugate) , the performance characteris tics of HAMA and rheumatoid factor samples have not been established and may occasionall y influence results. The performance characteris tics of this assay have not been evaluated for use in pediatric populations . Methodology : Chemilumine scent immunoassay (CLIA) 5600A-U [facility] EPILAB Immunolog y/Serolog y Mumps IgG Antibody Positive 6 (12/11/23 12:34 PM) 12/11 N Interpretiv e Data: NEGATIVE: Absence of detectable mumps virus IgG antibodies. A negative result generally indicates that the patient has not been infected and is susceptible to mumps. If the subject has no history of mumps, has not been previously vaccinated and exposure to mumps virus is suspected despite a negative finding, a second sample should be collected and tested no less than one to two weeks later. EQUIVOCAL: Submit a second sample no less than one or two weeks later. POSITIVE: Presence of detectable mumps virus IgG antibodies. A positive result generally indicates past exposure to mumps virus or previous vaccination . Diagnosis of a disease should be established based on the patient's anamnesis, in conjunction with clinical findings and in association with medical judgment. Any therapeutic decision must also be taken on a case-by-priti e basis. Specimens from patients receiving preparation s of mouse monoclonal antibodies for therapy or diagnosis may contain human anti-mouse antibodies (HAMA). Such specimens may interfere in a monoclonal antibody-ba sed immunoassay and their results should be evaluated with care. Grossly hemolyzed, icteric or lipemic samples as well as samples containing particulate matter or exhibiting obvious microbial contaminati on are not recommended and should not be tested. Diagnosis of infectious diseases should not be established on the basis of a single test result, but should be determined in conjunction with previous infection history, clinical findings and other diagnostic procedures as well as in association with medical judgment. The performance characteris tics of this assay have not been evaluated for use in pediatric populations . Methodology : Chemilumine scent immunoassay (CLIA) 5600A-U [facility] EPILAB Immunolog y/Serolog y Rubeola IgG Antibody Positive 5 (12/11/23 12:34 PM) 12/11 N Interpretiv e Data: NEGATIVE: Absence of detectable measles virus IgG antibodies. A negative result generally indicates that the patient has not been infected and is susceptible to measles. If the subject has no history of measles, has not been previously vaccinated and exposure to measles virus is suspected despite a negative finding, a second sample should be collected and tested within one to two weeks later. EQUIVOCAL: Submit a second sample no less than one or two weeks later. POSITIVE: Presence of detectable measles virus IgG antibodies. A positive result generally indicates exposure to measles virus or previous vaccination . False negative results may occur if samples are collected early in the disease. Diagnosis of a disease should be established based on the patient's anamnesis, in conjunction with clinical findings and in association with medical judgment. Any therapeutic decision must also be taken on a case-by-priti e basis. Specimens from patients receiving preparation s of mouse monoclonal antibodies for therapy or diagnosis may contain human anti-mouse antibodies (HAMA). Such specimens may interfere in a monoclonal antibody-ba sed immunoassay and their results should be evaluated with care. Grossly hemolyzed, icteric or lipemic samples as well as samples containing particulate matter or exhibiting obvious microbial contaminati on are not recommended and should not be tested. Diagnosis of infectious diseases should not be established on the basis of a single test result, but should be determined in conjunction with previous infection history, clinical findings and other diagnostic procedures as well as in association with medical judgment. The performance characteris tics of this assay have not been evaluated for use in pediatric populations . Methodology : Chemilumine scent immunoassay (CLIA) 56[facility]U [facility] Immunolog y/Serolog y Rubella IgG Antibody Positive 7 (12/11/23 12:34 PM) 12/11 N Interpretiv e Data: NEGATIVE: Sample is considered negative for IgG antibodies to rubella virus. A negative result presumes that immunity has not been acquired. If exposure to rubella virus is suspected despite a negative finding, a second specimen should be collected and tested one or two weeks later. Seroconvers ion from a negative specimen to a positive specimen is evidence of either recent infection, response to vaccination , or administrat ion of immunoglobu samira. EQUIVOCAL: Please obtain additional specimen for re-testing. POSITIVE: Sample is considered positive for IgG antibodies to rubella virus. The results of this assay are not by themselves diagnostic. Diagnosis of infectious diseases should not be established on the basis of a single test result, but should be determined in conjunction with clinical findings and other diagnostic procedures as well as in association with medical judgment. The presence of IgM antibody to rubella virus should also be evaluated as part of the serological surveillanc e of individuals suspected of rubella virus infection, as the appearance of rubella IgG antibody may occur slightly later than that of rubella IgM antibody. Diagnosis of infectious diseases should not be established on the basis of a single test result, but should be determined in conjunction with clinical findings and other diagnostic procedures as well as in association with medical judgment. Human anti-mouse antibodies (HAMA) and other heterophile antibodies may be present in patient samples. Although patient specimens are washed away prior to the addition of the mouse monoclonal (conjugate) , the performance characteris tics of HAMA specimens have not been established and may occasionall y influence results. Carefully evaluate results from patients suspected of having such antibodies. Cross-react ivity could not be determined for HBsAg, measles IgG, mumps IgG, anti-HCV, anti-HIV-1/ 2, parvovirus IgG, gammaglobul in, rheumatoid factor and Treponema pallidum due to low prevalence of rubella antibody negative/cr oss-reactin g condition positive patients. The performance characteris tics of this assay have not been evaluated for use in pediatric populations . Methodology : Chemilumine scent immunoassay (CLIA) 5600A-U [facility] Lopoly Vital Signs Combined list of inpatient and outpatient Vital Signs from [facility] and [facility], ranging from 12 months to all on record, depending upon the facility. Vital Sign Value Date Comments Source Systolic Blood Pressure 108 mm[Hg] 06/21/2023 11:18:[address] [place] [address] Diastolic Blood Pressure 71 mm[Hg] 06/21/2023 11:18:[address] [place] [address] Peripheral Pulse Rate 85 bpm 06/21/2023 11:18:[address] [place] [address] Procedures Combined list of: 1) Procedures from [facility] facilities going back up to thelast 18 months, not all [place] non-surgical procedures are included; 2) All procedures from the [facility] facilities. Procedure Procedure Type Code Date Perfomer Comments Sourc e No data available for this section Ambulatory P harmacy Social History Combined list of available smoking, tobacco, and other social history from [facility] and [facility] facilities. Social History Type Response Date Comment Sourc e Sexual Orientation Ambula tory Pharmacy Gender identity Ambulator y Pharmacy Sex Representation Female (finding) Unknown Organization Assessment and Plan Combined list of future care activities from [facility] and [facility] facilities (e.g., assessment and plan notes, appointments, orders, and referrals). Additional future care activities may be listed in the Plan of Care section. Result Assessment and Plan Date Source Assessment and Plan Extracted from:Title : Education Note Author: RUSSEL LAKHANI Date: 06/21/23 Diagnostic Tests PendingQuantiFERON-TB Gold Plus [id number] 12/11/23 02/15/[address] [place] [address] Functional Status Combined list of recent functional and cognitive assessments recorded at [facility] ([facility] Functional [employer] Measurement (FIM) Scale: 1 = Total Assistance (Subject = 0% +), 2 = Maximal Assistance (Subject = 25% +), 3 = Moderate Assistance (Subject = 50% +), 4 = Minimal Assistance (Subject = 75% +), 5 = Supervision, 6 = Modified [employer] (Device), 7 = Complete [employer] (Timely, Safely). Assessment Date/Time Source Assessment Type Assessment Skill Assessment Score Assessment Details No data available for this section
--- OUTSIDE RECORDS SUMMARY | 2025-02-15 08:38 | XMS_ITS ---
Author Organization [facility] Address [address] [place] [address] Care Team Providers Care Hand Stemmer Name Role Phone Evaristo Gutiérrez Primary Care Provider Unavailab Omaira Zhu Unavailable [phone] REASON FOR VISIT labs Encounters Encounter Location Date Provider Diagnosis [facility] [address] [place] [address] 12/11/2024 Omaira Pool Plan Of Treatment No Information Progress Notes * Mirlande WONGDOB:1975 (49 yo F)Acc No.[id number]:12/11/2024 Patient: Mirlande MCKEON :1975 A ge:49 Y S ex:Female Address:[address] [place] [address], [id number] * true * Date: Generated for Tarahi ng/Leilag/eTransmitting on: 0 02/15/2025 08:37 AM CDT
== END 2025-02-15 08:31 | disposition home or self-care (01) ==
LOC: ANHIMG 08:32
PROVIDERS: Visit Provider Obstetrics & Gynecology
DX: Z12.31 Encounter for screening mammogram for malignant neoplasm of breast (principal)
CPT/HCPCS: 77063; 77067